=== PATIENT | female | born 1940 | race Caucasian/White ===

== ENCOUNTER → 2021-12-08 | Outpatient (CLI) | payer OTHER ==
[~2021-12-08] MED LIST: ACID CONTROLLER20 MG PO; ALLEGRA ALLERG180 MG PO; ASPIRIN 325MG325 MG PO; ASPIRIN CHEWABL81 MG PO; CALCIUM500 MG PO; COQ-10100 MG PO; COZAAR50 MG PO; DILTIAZEM 24HR240 M1 PO; DILTIAZEM 24HR300 M1 PO; DILTIAZEM ER180 MG PO; DONEPEZIL HCL5 MG PO; ELIQUIS5 MG PO; METOPROLOL TART25 MG PO; MULTAQ 400 MG400 MG PO; NORVASC5 MG PO; OSTEO BI-FLEX1 EACH PO; VITAMIN D
[2021-12-08 12:40] LABS: HEMOGLOBIN 14.8 gm/dl (12.3-15.3); RED BLOOD COUNT 5.17 M/UL (4.00-5.10); WHITE BLOOD COUNT 6.9 K/UL (4.5-11.0)
== END ==
LOC: LAB 11:42
PROVIDERS: Physician Assistant
DX: I48.91 Unspecified atrial fibrillation (principal); I25.10 Atherosclerotic heart disease of native coronary artery without angina pectoris; E78.5 Hyperlipidemia, unspecified; R00.2 Palpitations; I49.3 Ventricular premature depolarization; R06.02 Shortness of breath; Z20.822 Contact with and (suspected) exposure to COVID-19
CPT/HCPCS: 36415; 80048; 85025

== ENCOUNTER → 2021-12-10 | Outpatient (CLI) | payer OTHER | END | disposition home or self-care (01) | LOC: CATH 07:10 | DX: I48.19 Other persistent atrial fibrillation (principal); I10 Essential (primary) hypertension; I25.10 Atherosclerotic heart disease of native coronary artery without angina pectoris; I34.0 Nonrheumatic mitral (valve) insufficiency; E78.5 Hyperlipidemia, unspecified; K21.9 Gastro-esophageal reflux disease without esophagitis; I49.3 Ventricular premature depolarization; Z87.891 Personal history of nicotine dependence; Z79.01 Long term (current) use of anticoagulants; Z79.82 Long term (current) use of aspirin; Z79.899 Other long term (current) drug therapy; Z88.8 Allergy status to other drugs, medicaments and biological substances; Z78.9 Other specified health status; Z82.49 Family history of ischemic heart disease and other diseases of the circulatory system | CPT/HCPCS: 92960; 93005; J1200; J1742; J2250; J2310; J3010; J7040 ==

== ENCOUNTER → 2022-05-10 | Outpatient (CLI) | payer OTHER ==
[~2022-05-10] MED LIST changes: -ACID CONTROLLER20 MG PO; +AMIODARONE HCL200 MG PO; +FAMOTIDINE40 MG PO; +LOSARTAN POTASS50 MG PO
== END ==
LOC: HEART 5 07:36
DX: I20.9 Angina pectoris, unspecified (principal)
CPT/HCPCS: 78452; A9502; J2785